=== PATIENT | female | born 1990 | race Caucasian/White ===

== ENCOUNTER → 2021-04-24 14:39 | Outpatient (BNVA) | payer SELFPAY | PROVIDERS: Visit Provider Nurse Practitioner Women's Health | DX: N92.6 Irregular menstruation, unspecified (principal); Z32.00 Encounter for pregnancy test, result unknown; Z78.9 Other specified health status | CPT/HCPCS: 84702 ==

== ENCOUNTER → 2021-05-31 11:00 | Outpatient (BNVA) | payer MEDICAID, SELFPAY | PROVIDERS: Visit Provider Obstetrics & Gynecology | DX: Z34.90 Encounter for supervision of normal pregnancy, unspecified, unspecified trimester (principal) | CPT/HCPCS: 85025; 86592; 86762; 86803; 86850; 86900; 87340; 87491; 87591; 87624; 87661; 87806 ==

== ENCOUNTER 2021-06-12 07:52 | Emergency (ER) | payer MEDICAID, SELFPAY ==
[2021-06-12 07:57] VITALS: BP 118/79; PULSE 127; RESP 18; TEMP 36.4; O2SAT 95; BMI 38.7
--- NOTE | 2021-06-12 08:12 | W.ED.NAVMDI ---
HPI - Nausea/Vomiting/Diarrhea General: Chief complaint: Nausea/Vomiting/Diarrhea Stated complaint: 14 weeks preg n/v Time Seen by Provider: 06/12/21 08:01 History of Present Illness: HPI Narrative: 30-year-old female presents emergency room with persistent nausea and vomiting. She is 14 weeks and has a history of ulcerative colitis with previous bowel resection resulting in a J-pouch. She been using Zofran and Phenergan at home with minimal relief of symptoms is having difficult time even keeping the medicine down. She has a little bit of right flank pain as well but denies dysuria. This is been going on for the last 2 weeks or more. She denies any fever sweats or chills she has not had any hematemesis or coffee-ground emesis. MD elicited complaint: nausea and vomiting Description of vomiting: food contents and watery Associated nausea: Yes Associated abdominal pain: Yes Location of pain: Diffuse Severity: moderate Quality: cramping Exacerbating factors: eating Relieving factors: none Associated symtoms: Reports bloating, fatigue, malaise, myalgias, nausea and weakness; Denies altered mental status, anxiety, change in vision, chest pain, cough, diaphoresis, decreased urine output, dizziness, dysuria, epistaxis, fecal incontinence, fevers/chills, headache(s), anorexia, numbness, palpitations, rash, short of breath, syncope, tenesmus or tinnitus Treatment prior to arrival: none (Promethazine and Phenergan.) Review of Systems Const: Reports: fatigue and malaise; Denies: diaphoresis Eyes: Denies: change in vision ENMT: Denies: tinnitus or epistaxis Card: Denies: chest pain, palpitations or syncope Resp: Denies: dyspnea, productive cough or non-productive cough GI: Reports: nausea and bloating; Denies: fecal incontinence : Denies: dysuria Skin/Breast: Denies: rash or pruritus Neuro: Denies: headache(s) or dizziness Psych: Denies: anxiety PFSH ED PFSH: Medical History No pertinent past medical history neghx: htn,dm,thyroid,dvt/pe PCP: None Ulcerative colitis Surgical History History of surgery on left wrist (~2006) Hx of colectomy total-- 3 surgeries--- [id number] Family History Grandmother Diabetes Paternal Stroke Maternal Thyroid disease Maternal Mother Heart disease Denies family history of Colon cancer Ovarian cancer Hypercholesteremia Breast cancer Hypertension Uterine cancer Physical Exam Const: EXAM LIMITATIONS: no altered mental status GENERAL APPEARANCE: cooperative and comfortable ORIENTATION/CONSCIOUSNESS: Yes awake, Yes oriented to person, Yes oriented to place and Yes oriented to time HENMT: COMMON NORMALS: normocephalic, atraumatic and hearing grossly normal bilaterally HEAD & SCALP: normocephalic and atraumatic Neck/C-Spine: COMMON NORMALS: no JVD Resp: COMMON NORMALS: normal respiratory effort, No retractions, No use of accessory muscles and clear to auscultation bilaterally AUSCULTATION: clear to auscultation bilaterally Cardio: COMMON NORMALS: no JVD, regular rate, regular rhythm and No murmurs present (Cardio) RATE: regular rate RHYTHM: regular rhythm GI: COMMON NORMALS: Soft to palpation and No hepatosplenomegaly present AUSCULTATION: Yes normoactive bowel sounds PALPATION: Yes Soft to palpation, No Tenderness to palpation present (GI), No Guarding due to palpation present (GI) and Yes No hepatosplenomegaly present Extremity: COMMON NORMALS: normal to inspection, capillary refill normal, no clubbing, cyanosis or edema, no calf tenderness and no pedal edema Neuro: SENSORIUM/ORIENTATION: Yes oriented to person, Yes oriented to place and Yes oriented to time Skin: COMMON NORMALS: no rashes or lesions noted GENERAL SKIN EXAM: no rashes or lesions noted Course Vital Signs: Vital signs: Vital Signs Temperature 97.6 F 06/12/21 07:57 Pulse Rate 93 06/12/21 12:15 Respiratory Rate 20 H 06/12/21 12:15 Blood Pressure 134/72 06/12/21 12:15 Pulse Oximetry 98 06/12/21 12:15 MDM - Nausea/Vomiting/Diarrhea MDM Narrative Medical decision making narrative: Labs And imagingreviewed. Patient is doing akiko since the fluids. Her imaging was done in April confirmed intrauterine . We will start her on Diclegis. Also have her continue to use Zofran or promethazine as needed. Follow-up with your primary care doctor within the next week return sooner if she has any problems. R Medical Records Attestation: I reviewed the patient's medical records. Lab Data Attestation: I reviewed the patient's lab results. Result diagrams: 06/12/21 08:18 06/12/21 08:18 Labs: Lab Results 06/12/21 06/12/21 06/12/21 08:18 08:18 08:24 WBC 10.9 10^3/uL H 10^3/uL (4.0-10.0) RBC 5.27 10^6/uL 10^6/uL (4.1-5.3) Hgb 15.9 g/dL H g/dL (11.5-15.3) Hct 44.8 % % (37.0-47.0) MCV 85.0 fl fl (81-99) MCH 30.2 pg pg (28.0-34.0) MCHC 35.5 g/dL g/dL (30.0-36.0) RDW 12.1 % % (12.1-15.1) Plt Count 525 10^3/cmm H 10^3/cmm (130-400) MPV 9.1 fL fL (7.4-10.4) Neut % (Auto) 69.6 % % Lymph % (Auto) 18.1 % % [place] % (Auto) 10.4 % % Eos % (Auto) 0.8 % % Baso % (Auto) 0.5 % % Neut # (Auto) 7.58 10^3/uL 10^3/uL (1.8-7.7) Lymph # (Auto) 2.0 10^3/uL 10^3/uL (0.8-4.8) [place] # (Auto) 1.1 10^3/uL H 10^3/uL (0.2-0.9) Eos # (Auto) 0.1 10^3/uL 10^3/uL (0.0-0.8) Baso # (Auto) 0.1 10^3/uL 10^3/uL (0.0-0.1) Nucleated RBC % (auto) 0 % % Nucleated RBCs # 0.0 /100WBC /100WBC Sodium 132 mmol/L L mmol/L (136-145) Potassium 3.7 mmol/L mmol/L (3.5-5.1) Chloride 95 mmol/L L mmol/L (98-107) Carbon Dioxide 19 mmol/L L mmol/L (22-29) Anion Gap 21.7 H (5-19) BUN 8 mg/dL mg/dL (6-20) Creatinine 0.5 mg/dL mg/dL (0.5-0.9) GFR Calculation 143.0 mL/min H mL/min (90-130) Glucose 118 mg/dL H mg/dL (65-115) Calculated Osmolality 273 mOsm/kg L mOsm/kg (285-295) Calcium 9.0 mg/dL mg/dL (8.5-10.5) Total Bilirubin 1.1 mg/dL mg/dL (0.15-1.2) AST 64 U/L H U/L (0-32) ALT 93 U/L H U/L (0-33) Alkaline Phosphatase 132 IU/L H IU/L (35-105) Total Protein 7.4 g/dL g/dL (6.6-8.7) Albumin 3.6 g/dL g/dL (3.5-5.2) Globulin 3.8 g/dL g/dL (1.3-4.6) Urine Color [place] (Yellow) Urine Appearance Sl hazy (CLEAR) Urine pH 7 (5-7) Ur Specific [place] 1.015 (1.005-1.030) Urine Protein 3+ H (Negative) Urine Glucose (UA) Norm (Normal) Urine Ketones 3+ H (Negative) Urine Blood 2+ H (Negative) Urine Nitrate Negative (Negative) Urine Bilirubin 1+ H (Negative) Urine Urobilinogen 4 mg/dL H mg/dL (Negative) Ur Leukocyte Esterase Trace H (Negative) Urine RBC 5-10 /hpf H /hpf (0-2) Urine WBC 0-4 /hpf H /hpf (0-5) Ur Squamous Epith Cells 5-10 /hpf H /hpf (0-5) Calcium Oxalate Crystal 0-4 /hpf H /hpf Amorphous Sediment Not Reportable Urine Bacteria 2+ /hpf H /hpf (NONE) Hyaline Casts 5-10 /lpf H /lpf Urine Mucus 2+ /hpf /hpf Discharge Plan Discharge Patient Disposition: Home Clinical Impression: Hyperemesis, Ulcerative colitis, History of total colectomy Condition: Stable Prescriptions: New doxylamine-pyridoxine (vit B6) [Diclegis] 10-10 mg tablet,delayed release (DR/EC) 1 tab PO BID Qty: 90 0RF Rx Instructions: 2 nightly, if not improving in 1 to 2 days increase to 2 at bedtime and 1 in AM if still not improving increased 2 twice daily No Action citalopram 40 mg tablet 40 mg PO DAILY 0RF ondansetron HCl [Zofran] 4 mg tablet 4 mg PO Q6H PRN (Reason: nausea and vomiting) Qty: 30 2RF promethazine 25 mg tablet 25 mg PO Q6H PRN (Reason: nausea and vomiting) Qty: 30 2RF Discharge Orders: Discharge ED (Routine); Ordered 06/12/21 Ordered By: Sushil Taylor Discharge Diet: Usual diet Discharge Activity: Resume usual activity Patient Instructions: Opioid Safety Coding Level of Care Code 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
[2021-06-12] MEDS: promethazine 25 mg/mL SDV 1 mL IM (08:21)
[2021-06-12 08:25] LABS: Basophils # 0.1 10^3/uL (0.0-0.1); Basophils % 0.5 %; Eosinophils # 0.1 10^3/uL (0.0-0.8); Eosinophils % 0.8 %; Hematocrit 44.8 % (37.0-47.0); Hemoglobin 15.9 g/dL (11.5-15.3); Lymphocytes % 18.1 %; Mean Corpuscular HGB Conc 35.5 g/dL (30.0-36.0); Mean Corpuscular Hemoglobin 30.2 pg (28.0-34.0); Mean Platelet Volume 9.1 fL (7.4-10.4); Monocytes # 1.1 10^3/uL (0.2-0.9); Monocytes % 10.4 %; Neutrophils # 7.58 10^3/uL (1.8-7.7); Neutrophils % 69.6 %; Nucleated Red Blood Cells % 0 %; Platelet Count 525 10^3/cmm (130-400); Red Blood Count 5.27 10^6/uL (4.1-5.3); Red Cell Distribution Width 12.1 % (12.1-15.1); White Blood Count 10.9 10^3/uL (4.0-10.0)
[2021-06-12 08:29] VITALS: BP 138/85; PULSE 107; RESP 16; O2SAT 96
[2021-06-12 08:45] LABS: Alanine Aminotransferase 93 U/L (0-33); Albumin Level 3.6 g/dL (3.5-5.2); Alkaline Phosphatase 132 IU/L (35-105); Anion Gap 21.7 (5-19); Aspartate Amino Transferase 64 U/L (0-32); Blood Urea Nitrogen 8 mg/dL (6-20); Carbon Dioxide 19 mmol/L (22-29); Chloride 95 mmol/L (98-107); Creatinine Clr Calc Pharmacy 201.7682; Globulin 3.8 g/dL (1.3-4.6); Glucose 118 mg/dL (65-115); Osmolality Calculated 273 mOsm/kg (285-295); Potassium 3.7 mmol/L (3.5-5.1); Sodium 132 mmol/L (136-145); Total Bilirubin 1.1 mg/dL (0.15-1.2); Total Protein 7.4 g/dL (6.6-8.7)
[2021-06-12] MEDS: dextrose 5%-sod chloride 0.9% 1,000 ML 1000 ML IV ×2 (08:57→10:02)
[2021-06-12 08:59] VITALS: PULSE 108; RESP 16; O2SAT 96
[2021-06-12 09:06] LABS: Glucose Urine UA Norm (Normal); Protein Urine 3+ (Negative); Specific Gravity, Urine 1.015 (1.005-1.030); Urine Appearance SL Hazy (CLEAR); Urine Color Amber (Yellow); pH Urine 7 (5-7)
[2021-06-12 09:07] LABS: Add Urine Culture? Yes; Add Urine Microscopic? YES; Bacteria Urine 2+ /hpf; Bilirubin Urine 1+ (Negative); Blood Urine 2+ (Negative); Calcium Oxalate Crystals Urine 0-4 /hpf; Ketones Urine 3+ (Negative); Leukocyte Esterase Urine Trace (Negative); Mucus Urine 2+ /hpf; Nitrate Urine Negative (Negative); Urobilinogen Urine 4 mg/dL (Negative); WBC Urine 0-4 /hpf (0-5)
[2021-06-12 10:46] VITALS: BP 139/84; PULSE 96; RESP 16; O2SAT 98
--- NOTE | 2021-06-12 10:47 | PC.NURSE ---
PATIENT NOTES THAT NAUSEA IS NOT IMPROVING. PATIENT HAS NOT VOMITTED BUT STILL FEELS VERY SICK.
[2021-06-12] MEDS: metoclopramide 5 mg/mL SDV 2 mL 10 MG IVP (11:23)
[2021-06-12 12:15] VITALS: BP 134/72; PULSE 93; RESP 20; O2SAT 98
== END 2021-06-12 12:16 | disposition home or self-care (01) ==
PROVIDERS: Emergency Provider Family Medicine
DX: O21.0 Mild hyperemesis gravidarum (principal); O99.611 Diseases of the digestive system complicating pregnancy, first trimester; K51.90 Ulcerative colitis, unspecified, without complications; Z3A.14 14 weeks gestation of pregnancy
CPT/HCPCS: 80053; 81001; 85025; 87086; 96361; 96372; 96374; 99284; J2550; J2765

== ENCOUNTER 2021-06-18 08:48 | Outpatient (CLI) | payer MEDICAID, SELFPAY ==
[2021-06-18] VITALS (12 sets, daily range): BP systolic 119–146; BP diastolic 58–86; PULSE 79–92; TEMP 37.1; BMI 39.2
[2021-06-18] MEDS: dextrose 5%-lactated ringers 1,000 ML 999 ML IV ×2 (09:36→10:43)
[2021-06-18] MEDS: ondansetron 2 mg/ML SDV 2 mL 4 MG IVP (09:37)
[2021-06-18] MEDS: promethazine 25 mg/mL SDV 1 mL IM (11:16)
== END 2021-06-18 12:25 | disposition home or self-care (01) ==
LOC: OPOB 08:57 → OBGYN 08:57
PROVIDERS: Visit Provider Obstetrics & Gynecology
DX: O21.0 Mild hyperemesis gravidarum (principal); Z3A.00 Weeks of gestation of pregnancy not specified
CPT/HCPCS: 96372; 99211; J2405; J2550

== ENCOUNTER 2021-06-25 11:45 | Outpatient (CLI) | payer MEDICAID, SELFPAY ==
[2021-06-25] MEDS: ondansetron 2 mg/ML SDV 2 mL 4 MG IVP (12:26)
[2021-06-25] MEDS: metoclopramide 5 mg/mL SDV 2 mL 10 MG IVP (12:26)
[2021-06-25 13:21] VITALS: BMI 38.9
[2021-06-25 16:41] VITALS: RESP 16
== END 2021-06-25 16:14 | disposition home or self-care (01) ==
LOC: OPOB 11:48 → OBGYN 13:38
PROVIDERS: Visit Provider Obstetrics & Gynecology
DX: O26.899 Other specified pregnancy related conditions, unspecified trimester (principal); Z3A.00 Weeks of gestation of pregnancy not specified; R11.2 Nausea with vomiting, unspecified
CPT/HCPCS: 99211; J2405; J2765

== ENCOUNTER 2021-07-04 09:15 | Outpatient (CLI) | payer MEDICAID, SELFPAY ==
[2021-07-04 09:34] VITALS: RESP 17
[2021-07-04 09:38] VITALS: BMI 37.4
[2021-07-04] MEDS: dextrose 5%-lactated ringers 1,000 ML 999 ML IV ×2 (10:06→11:09)
[2021-07-04 10:34] VITALS: BP 125/71; PULSE 105
[2021-07-04 12:30] VITALS: BP 125/71; PULSE 105; RESP 16
== END 2021-07-04 12:30 | disposition home or self-care (01) ==
LOC: OPOB 09:19 → OBGYN 09:20
PROVIDERS: Visit Provider Obstetrics & Gynecology
DX: O26.899 Other specified pregnancy related conditions, unspecified trimester (principal); Z3A.00 Weeks of gestation of pregnancy not specified; E86.0 Dehydration
CPT/HCPCS: 99211

== ENCOUNTER → 2021-07-27 11:05 | Outpatient (BNVA) | payer MEDICAID, SELFPAY | PROVIDERS: Visit Provider Obstetrics & Gynecology | DX: O09.899 Supervision of other high risk pregnancies, unspecified trimester (principal); Z3A.00 Weeks of gestation of pregnancy not specified | CPT/HCPCS: 80307; 84315; 84443; 87086 ==

== ENCOUNTER → 2021-09-17 08:59 | Outpatient (BNVA) | payer MEDICAID, SELFPAY | PROVIDERS: Visit Provider Obstetrics & Gynecology | DX: O09.899 Supervision of other high risk pregnancies, unspecified trimester (principal); Z3A.00 Weeks of gestation of pregnancy not specified | CPT/HCPCS: 80307; 82950; 84315; 84443; 85025; 87086 ==

== ENCOUNTER → 2021-10-15 13:45 | Outpatient (BNVA) | payer MEDICAID, SELFPAY | PROVIDERS: Visit Provider Obstetrics & Gynecology | DX: O09.899 Supervision of other high risk pregnancies, unspecified trimester (principal); Z3A.00 Weeks of gestation of pregnancy not specified | CPT/HCPCS: 84315; 87086 ==

== ENCOUNTER → 2021-10-24 08:41 | Outpatient (BNVA) | payer MEDICAID, SELFPAY | PROVIDERS: Referring Provider Obstetrics & Gynecology; Visit Provider Surgery | DX: K51.90 Ulcerative colitis, unspecified, without complications (principal) | CPT/HCPCS: 99203 ==

== ENCOUNTER → 2021-10-29 14:00 | Outpatient (BNVA) | payer MEDICAID, SELFPAY | PROVIDERS: Visit Provider Obstetrics & Gynecology | DX: O09.899 Supervision of other high risk pregnancies, unspecified trimester (principal); Z3A.00 Weeks of gestation of pregnancy not specified | CPT/HCPCS: 84315; 85025; 87086 ==

== ENCOUNTER 2021-11-04 02:20 | Outpatient (CLI) | payer MEDICAID, SELFPAY ==
[2021-11-04] VITALS (12 sets, daily range): BP systolic 122–125; BP diastolic 71–79; PULSE 72–88; RESP 16; TEMP 35.7–36.6; O2SAT 96–99; BMI 45.5
--- NOTE | 2021-11-04 11:08 | P.PCN_ITS ---
Procedure/Consent Procedure Narrative: NONSTRESS TEST: Place of test: [facility] [place]-L&D Indication: 30-year-old 1 para 0 at 35 weeks and 0 days, abdominal pain Date and time of test: 11/04/2021 Baseline: 135 Variability: Moderate variability Accelerations: Accelerations present Decelerations: No decelerations Tocometry: None contractions INTERPRETATION: NST reactive, continue kick counts
== END 2021-11-04 03:22 | disposition home or self-care (01) ==
LOC: OPOB 02:20 → OBGYN 02:21
PROVIDERS: Visit Provider Obstetrics & Gynecology
DX: O26.899 Other specified pregnancy related conditions, unspecified trimester (principal); Z3A.00 Weeks of gestation of pregnancy not specified; R10.9 Unspecified abdominal pain
CPT/HCPCS: 59025; 99211

== ENCOUNTER 2021-11-07 19:28 | Outpatient (CLI) | payer MEDICAID, SELFPAY ==
[2021-11-07 19:32] VITALS: RESP 16
[2021-11-07 19:38] VITALS: BP 132/81; PULSE 96
[2021-11-07 19:55] VITALS: BMI 43.7
[2021-11-07] MEDS: ampicillin 2,000 MG in sodium chloride 0.9% (plus) 50 ML 100 MG IV (20:08)
[2021-11-07] MEDS: sodium chloride 0.9% 500 ML 999 ML IV (20:15)
[2021-11-07] MEDS: betamethasone susp 6 mg/mL 5 mL 12 MG IM (20:15)
[2021-11-07 20:21] LABS: Urine Appearance Clear (CLEAR); Urine Color Yellow (Yellow); pH Urine 6.5 (5-7)
[2021-11-07 20:22] LABS: Add Urine Culture? No; Bacteria Urine 1+ /hpf; Bilirubin Urine Neg (Negative); Blood Urine 2+ (Negative); Glucose Urine UA Norm (Normal); Ketones Urine Negative (Negative); Leukocyte Esterase Urine Negative (Negative); Nitrate Urine Negative (Negative); Protein Urine 3+ (Negative); RBC Urine 15-25 /hpf (0-2); Squamous Epithelial Cell Urine 15-25 /hpf (0-5); Urobilinogen Urine Norm (Negative)
[2021-11-07 20:25] LABS: Nitrazine Paper, PH Positive
--- NOTE | 2021-11-07 20:27 | PM.OPHPUD ---
Labor & Delivery H&P Update Date of Procedure: November 07, 2021 Date H&P Performed: 10/31/21 H&P update information: I have reviewed H&P completed within last 30 days, I have examined patient prior to procedure and Changes to prior documentation as noted here Changes to previous documentation: The patient presented at 35 +3 weeks gestation with gross ROM. She is trell irregularly and not feeling her contractions. Plan is to transfer to [facility] for a primary and admission to NICU. Admission Diagnosis: Related Problem List Diagnoses (1) Ulcerative colitis: (2) Supervision of other high-risk : (3) Anxiety: (4) Morbid obesity with BMI of 40.0-44.9, adult: (5) History of total colectomy:
[2021-11-07 20:28] LABS: Basophils # 0.1 10^3/uL (0.0-0.1); Basophils % 0.3 %; Eosinophils # 0.2 10^3/uL (0.0-0.8); Eosinophils % 1.3 %; Hematocrit 39.8 % (37.0-47.0); Hemoglobin 14.1 g/dL (11.5-15.3); Lymphocytes # 2.7 10^3/uL (0.8-4.8); Lymphocytes % 15.6 %; Mean Corpuscular HGB Conc 35.4 g/dL (30.0-36.0); Mean Corpuscular Hemoglobin 30.7 pg (28.0-34.0); Mean Corpuscular Volume 86.5 fl (81-99); Mean Platelet Volume 11.3 fL (7.4-10.4); Monocytes % 5.8 %; Neutrophils # 13.15 10^3/uL (1.8-7.7); Neutrophils % 76.2 %; Nucleated Red Blood Cells % 0 %; Platelet Count 345 10^3/cmm (130-400); Red Cell Distribution Width 12.4 % (12.1-15.1); White Blood Count 17.3 10^3/uL (4.0-10.0)
--- NOTE | 2021-11-07 20:36 | PM.DCS ---
Discharge Providers Date of Admission: 11/07/21 Date of Discharge: November 07, 2021 Attending Provider at Admission: Dr. Lo Attending Provider at Discharge: Olena Lo MD Diagnoses at Discharge Discharge Diagnosis (1) Ulcerative colitis: Status: Acute (2) Supervision of other high-risk : Status: Acute (3) Anxiety: Status: Acute (4) Morbid obesity with BMI of 40.0-44.9, adult: Status: Acute (5) History of total colectomy: Status: Acute Reason for Visit Reason for Visit: CONTRACTIONS Hospital Course Hospital Course The patient presented to labor and delivery at 35 weeks, 3/7 days, for crampy pain, vaginal bleeding and possible ROM. She was found to be grossly ruptured on exam. She received a dose of betamethasone and started on Ampicillin for GBS prophylaxis. She was accepted as a transfer at [facility] for delivery. Physical Exam Const: COMMON NORMALS: no acute distress, patient oriented x3, no limitations, alert and well nourished GENERAL APPEARANCE: cooperative, comfortable, well kempt and well developed ORIENTATION/CONSCIOUSNESS: Yes awake, Yes oriented to person, Yes oriented to place and Yes oriented to time Resp: COMMON NORMALS: normal respiratory effort EFFORT & INSPECTION: Yes able to speak in complete sentences GI: COMMON NORMALS: Soft to palpation and non-tender PALPATION: Yes Soft to palpation Neuro: COMMON NORMALS: patient oriented x3 SENSORIUM/ORIENTATION: Yes alert, Yes oriented to person, Yes oriented to place and Yes oriented to time Psych: APPEARANCE: Yes well kempt Discharge Data Studies Completed and Pending Laboratory Results WBC 17.3 10^3/uL (4.0-10.0) H 11/07/21 20:00 RBC 4.60 10^6/uL (4.1-5.3) 11/07/21 20:00 Hgb 14.1 g/dL (11.5-15.3) 11/07/21 20:00 Hct 39.8 % (37.0-47.0) 11/07/21 20:00 MCV 86.5 fl (81-99) 11/07/21 20:00 MCH 30.7 pg (28.0-34.0) 11/07/21 20:00 MCHC 35.4 g/dL (30.0-36.0) 11/07/21 20:00 RDW 12.4 % (12.1-15.1) 11/07/21 20:00 Plt Count 345 10^3/cmm (130-400) 11/07/21 20:00 MPV 11.3 fL (7.4-10.4) H 11/07/21 20:00 Neut % (Auto) 76.2 % 11/07/21 20:00 Lymph % (Auto) 15.6 % 11/07/21 20:00 [place] % (Auto) 5.8 % 11/07/21 20:00 Eos % (Auto) 1.3 % 11/07/21 20:00 Baso % (Auto) 0.3 % 11/07/21 20:00 Neut # (Auto) 13.15 10^3/uL (1.8-7.7) H 11/07/21 20:00 Lymph # (Auto) 2.7 10^3/uL (0.8-4.8) 11/07/21 20:00 [place] # (Auto) 1.0 10^3/uL (0.2-0.9) H 11/07/21 20:00 Eos # (Auto) 0.2 10^3/uL (0.0-0.8) 11/07/21 20:00 Baso # (Auto) 0.1 10^3/uL (0.0-0.1) 11/07/21 20:00 Nucleated RBC % (auto) 0 % 11/07/21 20:00 Nucleated RBCs # 0.0 /100WBC 11/07/21 20:00 Urine Color Yellow (Yellow) 11/07/21 19:30 Urine Appearance Clear (CLEAR) 11/07/21 19:30 Urine pH 6.5 (5-7) 11/07/21 19:30 Ur Specific [place] 1.020 (1.005-1.030) 11/07/21 19:30 Urine Protein 3+ (Negative) H 11/07/21: Urine Glucose (UA) Norm (Normal) 11/07/21 19: Urine Ketones Negative (Negative) 11/07/21 19: Urine Blood 2+ (Negative) H 11/07/21 19:30 Urine Nitrate Negative (Negative) 11/07/21: Urine Bilirubin Neg (Negative) 06/15/22 19:30 Urine Urobilinogen Norm mg/dL (Negative) 11/07/21 19:30 Ur Leukocyte Esterase Negative (Negative) 11/07/21 19:30 Urine RBC 15-25 /hpf (0-2) H 11/07/21 19:30 Urine WBC 5-10 /hpf (0-5) H 11/07/21 19:30 Ur Squamous Epith Cells 15-25 /hpf (0-5) H 11/07/21 19:30 Amorphous Sediment Not Reportable 11/07/21 19:30 Urine Bacteria 1+ /hpf (NONE) H 11/07/21 19:30 Vitals Last Vital Signs Pulse 96 11/07/21 19:38 Resp 16 11/07/21 19:32 BP 132/81 11/07/21 19:38 Discharge Plan Discharge Patient Disposition: Xfer Other Prescriptions: No Action folic acid 1 mg tablet 1 mg PO DAILY 0RF (DME) breast pump Device See Rx Instructions .Route Qty: 1 0RF Rx Instructions: As directed citalopram 40 mg tablet 40 mg PO DAILY Qty: 30 11RF 1 tab PO DAILY 0RF Discharge Attestations Time Spent in Discharge Care*: less than 30 min Quality Metrics Clinical Quality Measures [ No reported AMI, CVA or VTE this stay] Coding Level of Care Code Acute Chg FW DC note Exam Expanded Problem Focused Diagnoses Ulcerative colitis K51.90 Supervision of other high-risk O09.899 Anxiety F41.9 Morbid obesity with BMI of 40.0-44.9, adult E66.01; Z68.41 History of total colectomy Z90.49
[2021-11-07 20:51] VITALS: BP 135/81; PULSE 89
== END 2021-11-07 21:32 | disposition other institution (70) ==
LOC: OPOB 19:28 → OBGYN 19:29
PROVIDERS: Visit Provider Obstetrics & Gynecology
DX: O42.913 Preterm premature rupture of membranes, unspecified as to length of time between rupture and onset of labor, third trimester (principal); Z3A.35 35 weeks gestation of pregnancy; O99.613 Diseases of the digestive system complicating pregnancy, third trimester; K51.90 Ulcerative colitis, unspecified, without complications; Z90.49 Acquired absence of other specified parts of digestive tract; O99.343 Other mental disorders complicating pregnancy, third trimester; F41.9 Anxiety disorder, unspecified; O99.213 Obesity complicating pregnancy, third trimester
CPT/HCPCS: 36415; 59025; 81001; 83986; 85025; 96372; 99211; J0290; J0702; J7040

== ENCOUNTER 2022-02-01 14:38 | Emergency (ER) | payer MEDICAID, SELFPAY ==
[2022-02-01 15:00] VITALS: BP 129/84; PULSE 78; RESP 16; TEMP 36.7; O2SAT 96; BMI 41.1
--- NOTE | 2022-02-01 15:26 | ECG_ITS ---
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 Measurements Intervals [place] Rate: 90 P: 48 [place]: 146 QRS: 69 QRSD: 100 T: 32 QT: 366 QTc: 449 Interpretive Statements SINUS RHYTHM LOW QRS VOLTAGE IN PRECORDIAL LEADS [QRS DEFLECTION < 1.0 mV IN CHEST LEADS] POSSIBLE ANTERIOR MYOCARDIAL INFARCTION , OF INDETERMINATE AGE [30 ms Q WAVE IN V3/V4, OR R < 0.2 mV IN V4] No previous ECG available for comparison Electronically Signed On 02-03-2022 13:25:00 CDT by Nasim Mattson M.D. [email or web address]
--- NOTE | 2022-02-01 15:39 | ED_ITS ---
HPI - Abdominal Pain General: Chief Complaint: Abdominal Pain Stated Complaint: chest and stomach pain Time Seen by Provider: 02/01/22 15:29 Source: patient Mode of arrival: ambulatory Limitations: no limitations History of Present Illness: 31-year-old female with a significant history of ulcerative colitis presents to the ER today for epigastric discomfort and reflux after drinking an energy drink. Patient reports after she drank that she began to experience some epigastric discomfort along with some chest pain and reflux. Patient describes the chest pain is across her upper abdomen. She reports it also hurts to take a deep breath. Patient reports this made her become anxious and made things worse. Patient reports she is 3 months from a C- section. She also reports a history of ulcerative colitis with total colectomy. Patient reports her mother did at age 60 of a heart attack. Patient denies any significant cardiac history at this time. She reports symptoms have imp roved some but she does still have some reflux. Patient did not take anything for this at home prior to arrival. She wanted to make sure this was not cardiac related. Review of Systems General: Reports: 10 or more systems reviewed and unremarkable except in HPI and below PFSH ED PFSH: Medical History No pertinent past medical history neghx: htn,dm,thyroid,dvt/pe PCP: None Ulcerative colitis Surgical History History of surgery on left wrist (~2006) Hx of colectomy total-- 3 surgeries--- [id number] Family History Grandmother Diabetes Paternal Stroke Maternal Thyroid disease Maternal Mother Heart disease Denies family history of Colon cancer Ovarian cancer Hypercholesteremia Breast cancer Hypertension Uterine cancer Social History Smoking and tobacco status: never smoked Physical Exam Const: COMMON NORMALS: no acute distress, average body habitus, patient oriented x3, no limitations, alert and well nourished HENMT: COMMON NORMALS: normocephalic, external ears normal, Normal external n ose present and Normal nasal mucous membranes and turbinates present HEAD & SCALP: normocephalic NOSE: Normal external nose present and Normal nasal mucous membranes and turbinates present EXTERNAL EAR: Yes external ears normal Eye: COMMON NORMALS: conjunctivae normal CONJUNCTIVA: Yes conjunctivae normal Resp: COMMON NORMALS: normal respiratory effort EFFORT & INSPECTION: Yes able to speak in complete sentences Cardio: COMMON NORMALS: regular rate, regular rhythm and No murmurs present (Cardio) RATE: regular rate RHYTHM: regular rhythm GI: COMMON NORMALS: Normal to inspection, nondistended, normoactive bowel sounds present, Soft to palpation and non-tender PALPATION: Yes Soft to palpation Extremity: COMMON NORMALS: normal to inspection and full ROM Neuro: COMMON NORMALS: patient oriented x3 SENSORIUM/ORIENTATION: Yes alert Psych: COMMON NORMALS: mental status grossly normal, Normal thought process present and cooperative THOUGHT PROCESS: Normal thought process present Skin: COMMON NORMALS: no rashes or lesions noted and no wounds GENERAL SKIN EXAM: no rashes or lesions noted Course ED course: 31-year-old female presents to the ER today for epigastric discomfort and reflux after she drank an energy drink just prior to arrival. Patient has a significant history of ulcerative colitis with a total colectomy. She does report her mother at age 60 of a heart attack. Patient reports she has never had any history of cardiac issues herself. She reports after dri nking the energy drinks she became anxious and had epigastric discomfort across the upper abdomen. Patient reports she did have increased reflux but did not take anything. Patient reports her symptoms have definitely improved at this time however she has still some epigastric discomfort. We will do a GI cocktail at this time. EKG was also done. Reevaluation(s): Reevaluation #1: Patient reports significant improvement after GI cocktail. Epigastric pain has completely resolved at this time. Time: 16:13 Vital Signs: Vital signs: Vital Signs Temperature 98.0 F 02/01/22 15:00 Pulse Rate 78 02/01/22 15:00 Respiratory Rate 16 02/01/22 15:00 Blood Pressure 129/84 02/01/22 15:00 Pulse Oximetry 96 02/01/22 15:00 Oxygen Delivery Me thod 02/01/22 15:00 MDM - Abdominal Pain Medical Decision Making 31-year-old female presents to the ER today for epigastric discomfort and reflux after she drank an energy drink just prior to arrival. Patient has a significant history of ulcerative colitis with a total colectomy. She does report her mother at age 60 of a heart attack. Patient reports she has never had any history of cardiac issues herself. She reports after drinking the energy drinks she became anxious and had epigastric discomfort across the upper abdomen. Patient reports she did have increased reflux but did not take anything. Patient reports her symptoms have definitely improved at this time however she has still some epigastric discomfort. We will do a GI cocktail at this time. EKG was normal. I do not suspect this is cardiac in nature. Likely more of a reaction to an energy drink plus some acid reflux. Patient had significant improvement and complete relief of pain after GI cocktail. I discussed with patient I would recommend she get omeprazole at home and take that as this is an issue she reports happens occasionally. Avoid caffeinated drinks as that may worsen her reflux. Patient should follow-up with PCP in 1 week. Return to the ER with any new or worsening symptoms. Patient verbalized understanding and was in agreement with the treatment plan. Lab Data : 02/01/22 15:48 02/01/22 15:48 Labs/Radiology: Laboratory Results WBC 11.4 10^3/uL (4.0-10.0) H 02/01/22 15:48 RBC 4.92 10^6/uL (4.1-5.3) 02/01/22 15:48 Hgb 14.6 g/dL (11.5-15.3) 02/01/22 15:48 Hct 43.9 % (37.0-47.0) 02/01/22 15:48 MCV 89.2 fl (81-99) 02/01/22 15:48 MCH 29.7 pg (28.0-34.0) 02/01/22 15:48 MCHC 33.3 g/dL (30.0-36.0) 02/01/22 15:48 RDW 12.2 % (12.1-15.1) 02/01/22 15:48 Plt Count 480 10^3/cmm (130-400) H 02/01/22 15:48 MPV 9.1 fL (7.4-10.4) 02/01/22 15:48 Neut % (Auto) 71.7 % 02/01/22 15:48 Lymph % (Auto) 17.0 % 02/01/22 15:48 [place] % (Auto) 8.3 % 02/01/22 15:48 Eos % (Auto) 1.8 % 02/01/22 15:48 Baso % (Auto) 0.5 % 02/01/22 15:48 Neut # (Auto) 8.14 10^3/uL (1.8-7.7) H 02/01/22 15:48 Lymph # (Auto) 1.9 10^3/uL (0.8-4.8) 02/01/22 15:48 [place] # (Auto) 0.9 10^3/uL (0.2-0.9) 02/01/22 15:48 Eos # (Auto) 0.2 10^3/uL (0.0-0.8) 02/01/22 15:48 Baso # (Auto) 0.1 10^3/uL (0.0-0.1) 02/01/22 15:48 Nucleated RBC % (auto) 0 % 02/01/22 15:48 Nucleated RBCs # 0.0 /100WBC 02/01/22 15:48 Critical Care Time Critical Care Time: Critical Care Time: No Attestation: EKG reviewed and normal sinus rhythm; HR 90, no ST elevation noted Discharge Plan Discharge Patient Disposition: Home Clinical Impression: Acid reflux, Abdominal discomfort, epigastric Condition: Stable Prescriptions: No Action ketoconazole 2 % shampoo 1 applic topical .three times weekly Qty: 120 2RF fluoxetine [Prozac] 40 mg capsule 40 mg PO DAILY Qty: 90 0RF Discharge Orders: Discharge ED (Routine); Ordered 02/01/22 Ordered By: Yomaira Israel Referrals: Preeti Vazquez DO [Primary Care Provider] - Discharge Diet: Usual diet Discharge Activity: Resume usual activity Patient Instructions: Opioid Safety Activity Restrictions/Additional Instructions: Take omeprazole as discussed. Follow-up with PCP in 1 week if no improvement. Return to the ER with new or worsening symptoms. Coding Level of Care Code ED Sap Portal Architect for Edy Fwdewayne Exam Comprehensive
[2022-02-01 15:55] LABS: Basophils # 0.1 10^3/uL (0.0-0.1); Basophils % 0.5 %; Eosinophils # 0.2 10^3/uL (0.0-0.8); Eosinophils % 1.8 %; Hematocrit 43.9 % (37.0-47.0); Hemoglobin 14.6 g/dL (11.5-15.3); Lymphocytes # 1.9 10^3/uL (0.8-4.8); Mean Corpuscular HGB Conc 33.3 g/dL (30.0-36.0); Mean Corpuscular Hemoglobin 29.7 pg (28.0-34.0); Mean Corpuscular Volume 89.2 fl (81-99); Mean Platelet Volume 9.1 fL (7.4-10.4); Monocytes # 0.9 10^3/uL (0.2-0.9); Monocytes % 8.3 %; Neutrophils # 8.14 10^3/uL (1.8-7.7); Neutrophils % 71.7 %; Nucleated Red Blood Cells % 0 %; Platelet Count 480 10^3/cmm (130-400); Red Blood Count 4.92 10^6/uL (4.1-5.3); Red Cell Distribution Width 12.2 % (12.1-15.1); White Blood Count 11.4 10^3/uL (4.0-10.0)
[2022-02-01] MEDS: lidocaine 2% viscous 15 ML, aluminum-mag hydrox-simethicon 30 ML, sucralfate oral liq 1 GM PO (15:57)
[2022-02-01 16:22] LABS: Alanine Aminotransferase 52 U/L (0-33); Albumin Level 3.7 g/dL (3.5-5.2); Alkaline Phosphatase 82 U/L (35-105); Aspartate Amino Transferase 40 U/L (0-32); Blood Urea Nitrogen 13 mg/dL (6-20); Carbon Dioxide 27 mmol/L (22-29); Chloride 102 mmol/L (98-107); Globulin 3.4 g/dL (1.3-4.6); Glomerular Filtration Rate 96.4 mL/min (90-130); Glucose 84 mg/dL (65-115); Osmolality Calculated 289 mOsm/kg (285-295); Sodium 140 mmol/L (136-145); Total Bilirubin 0.3 mg/dL (0.15-1.2); Total Protein 7.1 g/dL (6.6-8.7)
== END 2022-02-01 16:30 | disposition home or self-care (01) ==
PROVIDERS: Emergency Provider Physician Assistant; PCP Family Medicine
DX: R10.13 Epigastric pain (principal); K21.9 Gastro-esophageal reflux disease without esophagitis
CPT/HCPCS: 36415; 80053; 85025; 93005; 99284